=== PATIENT | female | born 1950 ===

== ENCOUNTER 2022-05-07 15:59 | Emergency (ER) | payer SELFPAY ==
[~2022-05-07] VITALS: Ht 175.3 cm; Wt 108.9 kg
[2022-05-07] MEDS ORDERED: VALS320T2 PO (16:22)
[2022-05-07] MEDS ORDERED: NIFE-34 PO (16:22)
[2022-05-07] MEDS ORDERED: ATOR10TA PO (16:22)
[2022-05-07] MEDS ORDERED: CARB200T PO (16:22)
[2022-05-07] MEDS ORDERED: SPIR50TA5 PO (16:22)
[2022-05-07] MEDS ORDERED: LEVO112T2 PO (16:22)
[2022-05-07] MEDS ORDERED: VERA240C3 PO (16:22)
[2022-05-07] MEDS ORDERED: CHOL400C8 PO (16:22)
[2022-05-07] MEDS ORDERED: CARV40CP PO (16:22)
--- NOTE | 2022-05-07 17:00 | NUR ---
patient left AMA.
== END 2022-05-07 17:06 | disposition left against medical advice (07) ==
LOC: ER 15:59
DX: S05.11XA Contusion of eyeball and orbital tissues, right eye, initial encounter (principal); W18.39XA Other fall on same level, initial encounter; Y92.89 Other specified places as the place of occurrence of the external cause; Z85.6 Personal history of leukemia; Z53.29 Procedure and treatment not carried out because of patient's decision for other reasons; R29.6 Repeated falls; R42 Dizziness and giddiness; G50.0 Trigeminal neuralgia
CPT/HCPCS: A4663